=== PATIENT | male | born 1985 | race American Indian/Alaskan Native ===

== ENCOUNTER 2017-08-08 07:50 | Emergency (ER) | payer OTHER ==
[2017-08-08] MEDS ORDERED: Sodium Chloride 0.9% 1,000 ML IV ONE ×2 (08:19→08:22)
[2017-08-08 08:32] LABS: BASO % 0.7 % (0.0-2.0); EOS % 1.2 % (0.0-4.0); HEMOGLOBIN 16.1 g/dL (12.0-18.0); LYMPH # 1.7 K/uL (1.0-4.3); LYMPH % 48.2 % (20.0-40.0); MEAN CELL VOLUME 89.6 fL (80.0-94.0); MEAN CORPUSCULAR HEMOGLOBIN 30.1 pg (27.0-31.0); MEAN CORPUSCULAR HGB CONC 33.6 g/dL (33.0-37.0); MONO # 0.4 K/uL (0.0-0.8); MONO % 12.3 % (0.0-10.0); NEUT # 1.3 K/uL (1.8-7.0); NEUT % 37.6 % (50.0-75.0); NRBC % 0.1 % (0.0-2.0); RBC 5.37 Mil/uL (4.40-5.90); WHITE BLOOD COUNT 3.6 K/uL (4.8-10.8)
[2017-08-08] MEDS ORDERED: Sodium Chloride 0.9% 2,000 ML ONE (08:35)
[2017-08-08 08:45] LABS: ALB/GLOB RATIO 0.9 (1.0-2.1); ALBUMIN 4.5 g/dL (3.5-5.0); ALT/SGPT 41 U/L (21-72); AST/SGOT 27 U/L (17-59); BLOOD UREA NITROGEN 14 mg/dL (9-20); CALCIUM 9.1 mg/dl (8.6-10.4); GFR AFRICAN-AMERICAN > 60; GFR NON-AFRICAN AMERICAN > 60
[2017-08-08 08:53] VITALS: RESP 16
[2017-08-08 10:24] VITALS: O2SAT 100
[2017-08-08 11:32] VITALS: BP 103/64; PULSE 84; TEMP 98.4
--- NOTE | 2017-08-08 12:58 | C.PDOC ---
History Of Present Illness 31 y/o male presents to ED with complaints of flu-like symptoms, decreased po intake, subjective fever and dry cough for 4 days. Patient states he was coughing today and "passed out" but reports currently feeling better. Patient denies chest pain, sob, abdominal pain or any othe complaints at this time. Chief Complaint (Nursing): Syncope History Per: Patient History/Exam Limitations: no limitations Onset/Duration Of Symptoms: Days Current Symptoms Are (Timing): Still Present Past Medical History Reviewed: Historical Data, Nursing Documentation, Vital Signs Vital Signs: Last Vital Signs Temp 98.4 F 08/08/17 11:32 Pulse 84 08/08/17 11:32 Resp 16 08/08/17 11:32 BP 103/64 08/08/17 11:32 Pulse Ox 100 08/08/17 12:59 - Medical History PMH: No Chronic Diseases Surgical History: Appendectomy Family History: States: No Known Family Hx - Social History Hx Alcohol Use: Yes Hx Substance Use: Yes - Immunization History Hx Tetanus Toxoid Vaccination: No Hx Influenza Vaccination: No Hx Pneumococcal Vaccination: No Review Of Systems Constitutional: Positive for: Fever Cardiovascular: Negative for: Chest Pain Respiratory: Positive for: Cough. Negative for: Shortness of Breath Gastrointestinal: Negative for: Nausea, Vomiting Skin: Negative for: Rash Neurological: Negative for: Weakness, Numbness, Dizziness Physical Exam - Physical Exam Appears: Non-toxic, No Acute Distress Skin: Warm, Dry, No Rash Head: Atraumatic, Normacephalic Eye(s): bilateral: Normal Inspection Nose: Normal Oral Mucosa: Dry Throat: Normal, No Erythema, No Exudate Neck: Normal ROM, Supple Cardiovascular: Rhythm Regular Respiratory: Normal Breath Sounds, No Rales, No Rhonchi, No Wheezing Gastrointestinal/Abdominal: Soft, No Tenderness, No Guarding, No Rebound Neurological/Psych: Oriented x3, Normal Speech, Normal Motor, Normal Sensation Gait: Steady ED Course And Treatment - Laboratory Results Result Diagrams: 08/08/17 08:27 08/08/17 08:27 ECG: Interpreted By Me, Viewed By Me ECG Rhythm: Sinus Rhythm Interpretation Of ECG: Early repolarization Rate From EC (BPM) O2 Sat by Pulse Oximetry: 100 (RA) Pulse Ox Interpretation: Normal Medical Decision Making Medical Decision Making: On re evaluation Patient is feeling better after hydration. Disposition - Disposition Referrals: [facility] Profile Req, [Non-Staff] - Disposition: HOME/ ROUTINE Disposition Time: 09:30 Condition: IMPROVED Additional Instructions: Thank you for letting us take care of you today. The emergency medical care you received today was directed at your acute symptoms. If you were prescribed any medication, please fill it and take as directed. It may take several days for your symptoms to resolve. Return to the Emergency Department if your symptoms worsen, do not improve, or if you have any other problems. Please contact your doctor or call one of the physicians/clinics you have been referred to that are listed on the Patient Visit Information form that is included in your discharge packet. Bring any paperwork you were given at discharge with you along with any medications you are taking to your follow up visit. Our treatment cannot replace ongoing medical care by a primary care provider (PCP) outside of the emergency department. Thank you for allowing the [facility] team to be part of your care today. Please follow up with your doctor in 2-3 days for re-evaluation and further management. Instructions: Dehydration (ED) Forms: Work Excuse - Clinical Impression Clinical Impression: Near syncope, Dehydration - Scribe Statement The provider has reviewed the documentation as recorded by the Prakashibdamion Black All medical record entries made by the Len were at my direction and personally dictated by me. I have reviewed the chart and agree that the record accurately reflects my personal performance of the history, physical exam, medical decision making, and the department course for this patient. I have also personally directed, reviewed, and agree with the discharge instructions and disposition.
--- NOTE | 2017-08-10 15:21 | CARD ---
APPROVED REPORT EKG Measurement Heart [id number] <Conclusion> Normal sinus rhythm Early repolarization Normal ECG
== END 2017-08-08 12:00 | disposition home or self-care (01) ==
LOC: C.ER 07:50
DX: R55 Syncope and collapse (principal); E86.0 Dehydration
CPT/HCPCS: 80053; 82948; 84484; 85025; 96360; 96361; 99285; J7040